=== PATIENT | male | born 1990 | race Caucasian/White ===

== ENCOUNTER 2022-01-11 15:48 | Emergency (ER) | payer OTHER ==
[2022-01-11 16:08] VITALS: BMI 31.7
[2022-01-11 16:12] VITALS: TEMP 97.1
[2022-01-11] MEDS ORDERED: ONDANSETRON *ODT* 4 MG TABLET SL ONE (16:12)
[2022-01-11] MEDS ORDERED: ONDANSETRON *ODT* 4 MG TABLET ONE (16:15)
[2022-01-11] MEDS ORDERED: ACETAMINOPHEN 500 MG TABLET (FP) PO ONE (16:21)
[2022-01-11] MEDS ORDERED: ACETAMINOPHEN 325 MG TABLET (FP) ONE (17:00)
[2022-01-11] MEDS ORDERED: VALPROATE SODIUM 250 MG/5 ML UNIT DOSE CUP PO SCH (18:45)
[2022-01-11 19:07] VITALS: BP 112/66; PULSE 76
== END 2022-01-11 19:30 | disposition home or self-care (01) ==
LOC: JER 15:48
DX: G40.89 Other seizures (principal)
CPT/HCPCS: 80164; 82962; 93005; 93010; 99284-25; Q0162